=== PATIENT | male | born 2000 | race Two or more races ===

== ENCOUNTER 2021-09-17 08:05 | Emergency (ER) | payer SELFPAY ==
[~2021-09-17] VITALS: Ht 177.8 cm; Wt 86.0 kg
--- NOTE | 2021-09-17 08:11 | PHYS DOC ---
General Adult HPI: HPI: Patient is a 20 year old male who presents via EMS with mid low back pain. He reports that symptoms began just prior to arrival, after he bent over to lift up a 20 pound bucket of paint. He was at work when this occurred. He reports he felt a "pop." He reports brief radiation of pain down the right lower extr emity, which is resolved. He does report that he fell backward and landed on his bottom. He denies head injury, loss of consciousness, syncope. He denies upper back pain or neck pain. He denies numbness or tingling or motor weakness. He denies urinary symptoms. He denies incontinence. No medication taken for pain prior to arrival. The pain is worse with forward bending and movement. He denies any previous history of chronic back pain or prior spine injury. Review of Systems: Review of Systems: Constitutional: Denies fever or chills. [] HENT: Denies nasal congestion or sore throat. [] Respiratory: Denies cough or shortness of breath. [] Cardiovascular: Denies chest pain or edema. [] GI: Denies abdominal pain, nausea, vomiting, denies incontinence. : Denies urinary symptoms or urine incontinence. Musculoskeletal: Reports mid low back pain. Denies joint pain or swelling. Integument: Denies rash. [] Neurologic: Denies headache, focal weakness or sensory changes. Denies dizziness or syncope. Psychiatric: Denies depression or anxiety. [] Heart Score: C/O Chest Pain: No Risk Factors: Risk Factors: DM, Current or recent (<one month) smoker, HTN, HLP, family history of CAD, obesity. Risk Scores: Score 0 - 3: 2.5% MACE over next 6 weeks - Discharge Home Score 4 - 6: 20.3% MACE over next 6 weeks - Admit for Clinical Observation Score 7 - 10: 72.7% MACE over next 6 weeks - Early Invasive Strategies Physical Exam: PE: Constitutional: Well developed, well nourished, no acute distress, non-toxic appearance. Anxious. HENT: Normocephalic, atraumatic Eyes: Sclera are clear, anicteric Neck: Trachea is midline, no tenderness, full range of motion. Cardiovascular:Heart rate regular rhythm, +2 radial and posterior tibial pulses bilaterally. Lungs & Thorax: Bilateral breath sounds clear to auscultation [] Abdomen: Abdomen is soft, nondistended, nontender to palpation, no CVA tenderness, no flank or abdominal ecchymoses. No palpable mass organomegaly. Skin: Warm, dry, no erythema, no rash. No visible wounds, abrasions or lacerations. Back: Slightly limited range of motion, secondary to pain. Pain is reproduced with flexion of the thoracolumbar spine. Diffuse midline and paraspinal lumbar tenderness to palpation. No palpable step-offs or crepitus. No palpable deformity. No visible external deformity of the posterior thorax or spine. Extremities: No tenderness, no cyanosis, no clubbing, ROM intact, no edema, no calf tenderness. Pelvis is stable. No limb deformity. Neurologic: Alert and oriented X 3, normal motor function, normal sensory function, no focal deficits noted. Normal straight leg raising. 5 out of 5 motor strength all 4 extremities. DTRs 2 out of 4 bilateral lower extremities. No foot drop. Sensation is grossly intact. No facial asymmetry. Speech is clear and fluent. Psychologic: Anxious, cooperative and pleasant. EKG: EKG: [] Radiology/Procedures: Radiology/Procedures: IMAGING REPORT Signed PATIENT: Sukhi Watkins ACCOUNT: [id number] : 2000 LOCATION: ER AGE: 20 SEX: M EXAM STATUS: PRE ER ORD. PHYSICIAN: APARNA MIRANDA DO REASON: back pain PROCEDURE: LUMBAR SPINE 2-3V EXAM: XR LUMBAR SPINE 2-3V 09/17/2021 8:23 AM CLINICAL INDICATION: Back pain COMPARISON: None TECHNIQUE: 3 views of the lumbar spine FINDINGS: There 5 nonrib-bearing lumbar vertebral bodies. No acute fracture. Alignment is normal. Disc spaces are maintained. No facet arthrosis. IMPRESSION: Normal lumbar spine radiograph. Electronically signed by: Jennifer Ortiz MD (09/17/2021 8:48 AM) [id number] DICTATED and SIGNED BY: JENNIFER ORTIZ MD DATE: 09/17/21 [id number] 0 Course & Med Decision Making: Course & Med Decision Making Pertinent Labs and Imaging studies reviewed. (See chart for details) IM Toradol and PO Valium are given here. He reports feeling better. He is able to ambulate without difficulty. I discussed the findings, differential diagnosis and plan of care with him. No current indication for further imaging or invasive exams. No red flag signs or symptoms. I discussed home care instructions. I recommend he follow-up with a primary care physician. Outpatient resources are given. Return precautions are given. Sandra Disclaimer: Sandra Disclaimer: This electronic medical record was generated, in whole or in part, using a voice recognition dictation system. Departure Departure Impression: Primary Impression: Low back pain Disposition: HOME / SELF CARE / HOMELESS Condition: STABLE Patient Instructions: Back Pain, Adult Additional Instructions: Take the medication as directed/as needed. You may alternate ice and heat and perform gentle stretching. Return to the ER for new injury or trauma, more severe uncontrolled pain, uncontrolled vomiting, severe abdominal pain, if you lose control of your bowel or bladder function, if you have any motor weakness or paralysis or for any other concerns. Please follow-up with a primary care physician. Scripts Ibuprofen (IBUPROFEN) 600 Mg Tablet 600 MG PO PRN Q6HRS PRN for PAIN, #20 TAB 0 Refills take with food or milk Prov: APARNA MIRANDA DO 09/17/21 Cyclobenzaprine Hcl (CYCLOBENZAPRINE HCL) 10 Mg Tablet 1 TAB PO BID for muscle spasm, #14 TAB 0 Refills Prov: APARNA MIRANDA DO 09/17/21 APARNA MIRANDA DO Sep 17, 2021 08:11
[2021-09-17 08:17] VITALS: BP 152/75
[2021-09-17] MEDS ORDERED: KETOROLAC 30 MG/ML VIAL. ONE (08:24)
[2021-09-17] MEDS ORDERED: diazePAM 5 MG TABLET ONE (08:24)
[2021-09-17] MEDS ORDERED: diazePAM 5 MG TABLET PO ONE (08:30)
[2021-09-17] MEDS ORDERED: KETOROLAC 60 MG/2 ML VIAL. IM ONE (08:30)
--- NOTE | 2021-09-17 08:51 | RAD ---
EXAM: XR LUMBAR SPINE 2-3V 09/17/2021 8:23 AM CLINICAL INDICATION: Back pain COMPARISON: None TECHNIQUE: 3 views of the lumbar spine FINDINGS: There 5 nonrib-bearing lumbar vertebral bodies. No acute fracture. Alignment is normal. Di sc spaces are maintained. No facet arthrosis. IMPRESSION: Normal lumbar spine radiograph. Electronically signed by: Jennifer Ortiz MD (09/17/2021 8:48 AM) [id number]
[2021-09-17 10:22] LABS: BILIRUBIN,URINE NEGATIVE (NEG); CLARITY,URINE CLOUDY; COLOR,URINE YELLOW; NITRITE,URINE NEGATIVE (NEG); PH,URINE 6.5 (<5.0-8.0); PROTEIN,URINE NEGATIVE (NEG-TRACE); UROBILINOGEN,URINE 0.2 mg/dL (0.2 mg/dL)
[2021-09-17 10:38] LABS: BACTERIA,URINE 0 /HPF (0-FEW); RBC,URINE 0 /HPF (0-2); WBC,URINE 0 /HPF (0-4)
[2021-09-17 10:39] LABS: AMORPHOUS SEDIMENT,UR PRESENT /HPF
[2021-09-17] MEDS ORDERED: IBUP-1007 PO (10:53)
[2021-09-17] MEDS ORDERED: CYCL10TA19 PO (10:53)
== END 2021-09-17 12:05 | disposition home or self-care (01) ==
LOC: ER 08:05
DX: M54.50 Low back pain, unspecified (principal); M79.604 Pain in right leg; G89.11 Acute pain due to trauma; W18.39XA Other fall on same level, initial encounter; Y93.89 Activity, other specified; Y92.89 Other specified places as the place of occurrence of the external cause; Y99.8 Other external cause status
CPT/HCPCS: 72100; 81001; 96372; 99284; J1885